=== PATIENT | female | born 1965 | race Caucasian/White ===

== ENCOUNTER 2021-03-24 07:29 | Inpatient (IN) | payer BC, OTHER ==
[~2021-03-24] VITALS: Ht 157.5 cm; Wt 66.2 kg
[~2021-03-24 07:29] MED LIST: MECL-118 PO
--- NOTE | 2021-03-24 07:29 | NUR ---
PT BIB DAUGHTER C/O WORSENING SOB, +COVID 1 WEEK AGO. PT IS AAOX4, NOTED MILD RESPIRATORY DISTRESS, HOOKED TO O2 VIA NC AT 4 LPM AND SUPPLY CHAIN BUSINESS ANALYST, KEPT RESTED AND COMFORTABLE. WILL CONTINUE TO MONITOR.
--- NOTE | 2021-03-24 07:39 | NUR ---
SEEN AND EXAMINED BY .
[2021-03-24] MEDS ORDERED: ALBU8.5H8 IH (07:50)
--- NOTE | 2021-03-24 07:50 | NUR ---
IV LINE ESTABLISHED BLOOD DRAWN AND SENT TO LAB.
[2021-03-24] MEDS ORDERED: DEXAMETHASONE SOD PHOSPHATE 10 MG/ML VIAL ONE (07:53)
[2021-03-24] MEDS ORDERED: DEXAMETHASONE SOD PHOSPHATE 10 MG/ML VIAL IV ONE (08:00)
--- NOTE | 2021-03-24 08:10 | NUR ---
CARDIAC NURSE PRACTITIONER AT BEDSIDE FOR XRAY.
[2021-03-24 08:22] LABS: BASOPHILS % (AUTO) 0.4 % (0.0-2.0); HEMATOCRIT 36 % (33-45); HEMOGLOBIN 12.5 g/dL (11.5-14.8); LYMPHOCYTES # (AUTO) 0.5 K/uL (0.8-4.8); LYMPHOCYTES % (AUTO) 7.6 % (20.0-44.0); MEAN CORPUSCULAR HGB CONC 35 g/dl (31.0-36.0); MEAN CORPUSCULAR VOLUME 89 fL (82-100); MONOCYTES # (AUTO) 0.5 K/uL (0.1-1.30); MONOCYTES % (AUTO) 7.3 % (2.0-12.0); NEUTROPHILS # (AUTO) 5.4 K/uL (1.8-8.9); NEUTROPHILS % (AUTO) 84.7 % (43.0-81.0); PLATELET COUNT (AUTO) 220 K/uL (150-450); RED BLOOD CELL COUNT(AUTO) 4.05 MIL/uL (4.0-5.2); WHITE BLOOD COUNT (AUTO) 6.4 K/uL (4.3-11.0)
--- NOTE | 2021-03-24 08:24 | NUR ---
COVID SPECIMEN OBTAINED AND SENT TO LAB.
[2021-03-24 08:30] LABS: CALCIUM, SERUM 8.4 mg/dL (8.5-10.1); CARBON DIOXIDE 25 mmol/L (21-32); CHLORIDE 99 mmol/L (98-107); CREATININE 0.7 mg/dL (0.6-1.3); GLUCOSE 123 mg/dL (74-106); POTASSIUM 4.4 mmol/L (3.5-5.1); SODIUM SERUM 136 mmol/L (136-145); UREA NITROGEN, BLOOD 10 mg/dL (7-18)
[2021-03-24] MEDS ORDERED: IV D5/0.45 NACL 1,000 ML IV ONE ×3 (08:30)
[2021-03-24] MEDS ORDERED: IV D5 / 0.2% NACL 1,000 ML IV ONE (08:30)
[2021-03-24 08:49] LABS: ALANINE AMINOTRANSFERASE 84 U/L (12-78); ALKALINE PHOSPHATASE 55 U/L (46-116); ASPARTATE AMINOTRANSFERASE 63 U/L (15-37); BILIRUBIN,DIRECT 0.2 mg/dL (0.0-0.2); BILIRUBIN,TOTAL 0.5 mg/dL (0.2-1.0); TOTAL PROTEIN, SERUM 7.8 g/dL (6.4-8.2)
--- NOTE | 2021-03-24 08:53 | NUR ---
paged panel storage management consultant for admission and speaking to Dr. Avila.
--- NOTE | 2021-03-24 08:57 | NUR ---
NURSING SUP GAVE 105.
--- NOTE | 2021-03-24 09:13 | NUR ---
REPORT GIVEN TO IL[facility] FOR DANIEL.
[2021-03-24 09:48] VITALS: BP 128/73
--- NOTE | 2021-03-24 10:22 | NUR ---
CHEMIC MANGLER NOTES RECEIVED PT FROM ER, DIAGNOSED WITH COVID PNA, UNDER THE CARE OF DR. CHIANG, PT IS ALERT/ORIENTED X4 ON 4L O2 VIA N/C WITH SLIGHT SOB NOTED, O2 SATURATION 95%, PLACED ON TELE MONITOR, NSR 74. PT IS AMBULATORY, ASSISTED TO BEDSIDE COMMODE. LEFT AC HL 18 GAUGE FLUSHING WELL. SKIN INTACT, BED IN LOWEST LOCKED POSITION, SAFETY MEASURES OBSERVED, CALL LIGHT WITHIN REACH. PLAN OF CARE DISCUSSED WITH PT. BELONGINGS WILL BE CHECKED. ALL NEEDS ATTENDED. WILL CONTINUE TO MONITOR.
[2021-03-24 10:24] LABS: BILIRUBIN,URINE NEGATIVE (NEGATIVE); COLOR,URINE YELLOW (YELLOW); LEUKOCYTE ESTERASE ,URINE NEGATIVE (NEGATIVE); NITRITE, URINE NEGATIVE (NEGATIVE); PROTEIN,URINE NEGATIVE (NEGATIVE); UGLUCOSE >=1000 mg/dL (NEGATIVE); UROBILINOGEN,URINE 0.2 EU/dL (0.2)
[2021-03-24] MEDS ORDERED: ALBUTEROL SULFATE 8 GM HFA.AER.AD IH PRN (10:30)
[2021-03-24] MEDS ORDERED: ONDANSETRON HCL/PF 4 MG/2 ML VIAL IVP PRN (10:30)
[2021-03-24] MEDS ORDERED: MAGNESIUM HYDROXIDE 30 ML UDC PO PRN (10:30)
[2021-03-24] MEDS ORDERED: MAG HYDROX/AL HYDROX/SIMETH 30 ML UDC PO PRN (10:30)
[2021-03-24] MEDS ORDERED: HYDROCODONE/APAP 5/325MG TABLET PO PRN (10:30)
[2021-03-24] MEDS ORDERED: ACETAMINOPHEN 325 MG TABLET PO PRN (10:30)
[2021-03-24] MEDS: ENOXAPARIN SODIUM 40 MG/0.4 ML DISP.SYRIN SQ SCH (11:11)
[2021-03-24 11:18] LABS: BACTERIA,URINE Rare /HPF (None Seen); RBC,URINE 0-3 /HPF (0-2); SQUAMOUS EPITHELIAL CELL,UR Few /HPF (None Seen); WBC,URINE 0-2 /HPF (0-3)
[2021-03-24] MEDS: CEFTRIAXONE 1 G in IV D5W 50 ML IV SCH (11:28)
[2021-03-24] MEDS: SENNOSIDES/DOCUSATE SODIUM 1 TAB TABLET PO SCH (11:37)
[2021-03-24 11:44] LABS: C-REACTIVE PROTEIN 8.1 mg/dL (0.0-0.9)
--- NOTE | 2021-03-24 11:48 | NUR ---
CRACK OFF PERSON NOTES SPOKE WITH DR. CHIANG. PT COMPLAINING OF CONSTIPATION. ORDERED [place], ORDER CARRIED OUT. PT RECENTLY COMPLETED COURSE OF AZYTHROMICIN. DR. CHIANG SAID TO STILL CONTINUE IV ZITHROMAX, ASSISTED TO BEDSIDE COMMODE, ABLE TO URINATE WELL, KEPT CLEAN AND DRY. ASSISTED BACK TO BED, BED IN LOWEST LOCKED POSITION, CALL LIGHT WITHIN REACH, ALL NEEDS ATTENDED.
[2021-03-24 12:00] VITALS: BP 102/54
[2021-03-24] MEDS: AZITHROMYCIN 500 MG in IV D5W 250 ML IV SCH (12:09)
--- NOTE | 2021-03-24 15:31 | NUR ---
POLISHING PAD MOUNTER NOTE ROUNDS MADE RESTING COMFORTABLY IN BED , CALL LIGHT WITHIN REACH
[2021-03-24 16:00] VITALS: BP 107/63
[2021-03-24] MEDS: REMDESIVIR (CHARGED) 200 MG, *LOADING DOSE 1 EA in IV NS 0.9% 210 ML IV ONE ×2 (17:03→17:36)
--- NOTE | 2021-03-24 18:29 | NUR ---
DYE HOUSE WHEEL OPERATOR NOTES PT IN BED EATING DINNER AND RESTING. NO SIGNS OF SOB, CONTINUED ON 4L NC OXYGEN SATURATION 95%. ALL NEEDS ATTENDED, CALL LIGHT WITHIN REACH, BED IN LOWEST LOCKED POSITION. WILL CONTINUE TO MONITOR.
--- NOTE | 2021-03-24 19:30 | NUR ---
RN OPENING NOTES: RECEIVED PT A/OX4 IN BED SLEEPING COMFORTABLY. PATIENT IN NO S/SX OF ACUTE DISTRESS AT THIS TIME. NO SOB NOTED. PATIENT'S BREATHING IS EVEN AND UNLABORED. PATIENT IS ON 5L OF OXYGEN VIA NC; TOLERATING WELL. PATIENT ON TELE MONITORING READING SINUS RHYTHM HR IS @75 BPM AT THE TIME OF RECEIVED. PATIENT ON REGULAR DIET; TOLERATES WELL. NOTED IV SITE ON L AC#18 ; PATENT, INTACT AND FLUSHING WELL; NO S/S OF INFECTION OR INFILTRATION. SAFETY MEASURES HAVE BEEN PROVIDED AND IMPLEMENTED. PATIENT BED ALARM IS ON. HEAD OF BED ELEVATED. BED IS LOCKED, IN LOWEST POSITION AND SIDE RAILS UP. CALL LIGHT WITHIN REACH OF THE PATIENT. APPLICABLE ISOLATION PRECAUTIONS IN PLACE. WILL CONTINUE TO MONITOR AND REASSESS FOR ANY CHANGES AND WILL CARRY OUT ANY ONGOING AND ACTIVE MD ORDER.
[2021-03-24 20:00] VITALS: BP 105/62
[2021-03-25] VITALS: BP 99/57
--- NOTE | 2021-03-25 | NUR ---
RN NOTES PATIENT REMAINED TO BE IN NO SIGNS OF ACUTE RESPIRATORY DISTRESS , VITAL SIGNS WNL AT THIS TIME. REPRESENTATIVE GOVERNMENT RELATIONS MADE AWARE. WILL CONTINUE TO MONITOR AND REASSESS FOR ANY CHANGES THROUGHOUT THE SHIFT.
[2021-03-25 04:00] VITALS: BP 105/57
--- NOTE | 2021-03-25 04:00 | NUR ---
RN NOTES NO NOTED CHANGES IN PATIENT CONDITION AT THIS TIME; PATIENT VITALS STABLE, NO SIGNS OF ACUTE RESPIRATORY DISTRESS. AM PATIENT CARE RENDERED. STONEWORKER MADE AWARE. WILL CONTINUE TO MONITOR AND REASSESS FOR ANY CHANGES THROUGHOUT THE SHIFT.
[2021-03-25 06:05] LABS: BASOPHILS % (AUTO) 0.2 % (0.0-2.0); HEMATOCRIT 33 % (33-45); HEMOGLOBIN 11.5 g/dL (11.5-14.8); LYMPHOCYTES # (AUTO) 0.7 K/uL (0.8-4.8); MEAN CORPUSCULAR HGB CONC 34 g/dl (31.0-36.0); MEAN CORPUSCULAR VOLUME 89 fL (82-100); MONOCYTES # (AUTO) 0.7 K/uL (0.1-1.30); MONOCYTES % (AUTO) 10.3 % (2.0-12.0); NEUTROPHILS # (AUTO) 5.5 K/uL (1.8-8.9); NEUTROPHILS % (AUTO) 79.5 % (43.0-81.0); PLATELET COUNT (AUTO) 249 K/uL (150-450); RED BLOOD CELL COUNT(AUTO) 3.74 MIL/uL (4.0-5.2); WHITE BLOOD COUNT (AUTO) 6.9 K/uL (4.3-11.0)
[2021-03-25 06:44] LABS: ALBUMIN 2.6 g/dL (3.4-5.0); BILIRUBIN,DIRECT 0.1 mg/dL (0.0-0.2); BILIRUBIN,TOTAL 0.4 mg/dL (0.2-1.0); CALCIUM, SERUM 8.2 mg/dL (8.5-10.1); CREATININE 0.7 mg/dL (0.6-1.3); MAGNESIUM 2.3 mg/dL (1.8-2.4); PHOSPHORUS 3.7 mg/dL (2.5-4.9); POTASSIUM 4.2 mmol/L (3.5-5.1)
[2021-03-25 06:52] LABS: THYROID STIMULATING HORMONE 0.31 uIU/mL (0.358-3.74)
--- NOTE | 2021-03-25 06:55 | NUR ---
RN CLOSING NOTE: PATIENT REMAINS IN ROOM IN NO SIGNS OF RESPIRATORY DISTRESS, PATIENT STILL ON 5L OF 02 VIA NC; TOLERATING WELL SATURATING @ >95% SP02. SAFETY MEASURES IMPLEMENTED, BED IN LOWEST POSITION, LOCKED, SIDE RAILS UP, CALL LIGHT WITHIN REACH. ALL NEEDS AND ORDERS ADDRESSED DURING THE SHIFT. IV ACCESS MAINTAINED INTACT, SECURED AND FLUSHING WELL. PATIENT KEPT CLEAN AND COMFORTABLE WITHIN THE SHIFT. PATIENT ENDORSED TO INCOMING SHIFT RN WITH STABLE VITAL SIGN AND FOR CONTINUITY OF CARE.
[2021-03-25 08:00] VITALS: BP 128/73
[2021-03-25] MEDS: SENNOSIDES/DOCUSATE SODIUM 1 TAB TABLET PO SCH ×2 (08:43→08:57)
[2021-03-25] MEDS: PANTOPRAZOLE 40 MG TABLET.DR PO SCH (08:44)
[2021-03-25] MEDS: ENOXAPARIN SODIUM 40 MG/0.4 ML DISP.SYRIN SQ SCH (08:45)
[2021-03-25] MEDS: DEXAMETHASONE SOD PHOSPHATE 10 MG/ML VIAL IV SCH (08:46)
[2021-03-25] MEDS: CEFTRIAXONE 1 G in IV D5W 50 ML IV SCH (10:50)
[2021-03-25 12:15] VITALS: BP 90/56
[2021-03-25] MEDS: AZITHROMYCIN 500 MG in IV D5W 250 ML IV SCH (12:15)
[2021-03-25 16:00] VITALS: BP 90/56
[2021-03-25 17:04] LABS: C-REACTIVE PROTEIN 3.5 mg/dL (0.0-0.9)
[2021-03-25] MEDS: REMDESIVIR (CHARGED) 100 MG in IV NS 0.9% 100 ML IV SCH (18:31)
--- NOTE | 2021-03-25 19:30 | NUR ---
RN OPENING NOTES: RECEIVED PT A/OX4 IN BED SLEEPING COMFORTABLY. PATIENT IN NO S/SX OF ACUTE DISTRESS AT THIS TIME. NO SOB NOTED. PATIENT'S BREATHING IS EVEN AND UNLABORED. PATIENT IS ON 5L OF OXYGEN VIA NC; TOLERATING WELL. PATIENT ON TELE MONITORING READING SINUS RHYTHM HR IS @60s AT THE TIME OF RECEIVED. PATIENT ON REGULAR DIET; TOLERATES WELL. NOTED IV SITE ON R UA MIDLINE#18; PATENT, INTACT AND FLUSHING WELL; NO S/S OF INFECTION OR INFILTRATION. SAFETY MEASURES HAVE BEEN PROVIDED AND IMPLEMENTED. PATIENT BED ALARM IS ON. HEAD OF BED ELEVATED. BED IS LOCKED, IN LOWEST POSITION AND SIDE RAILS UP. CALL LIGHT WITHIN REACH OF THE PATIENT. APPLICABLE ISOLATION PRECAUTIONS IN PLACE. WILL CONTINUE TO MONITOR AND REASSESS FOR ANY CHANGES AND WILL CARRY OUT ANY ONGOING AND ACTIVE MD ORDER.
--- NOTE | 2021-03-25 19:34 | NUR ---
STANDARDS ANALYST CLOSING NOTE PATIENT CURRENTLY LYING IN BED, RESTING. EASY TO AROUSE. A/O X4. ON 5L OF O2 VIA NC; TOLERATING WELL SATURATING @ 92 -95% SP02. IV ACCESS TO LEFT UPPER ARM - MIDLINE - INTACT AND PATENT, FLUSHES WELL. PATIENT KEPT CLEAN AND DRY THROUGHOUT SHIFT. SAFETY MEASURES IN PLACE. CALL LIGHT WITHIN REACH. WILL ENDORSE TO RADIO INTERFERENCE SUPERVISOR NURSE FOR DANIEL.
[2021-03-25 20:00] VITALS: BP 106/70
[2021-03-26] VITALS: BP 103/64
--- NOTE | 2021-03-26 | NUR ---
RN NOTES PATIENT REMAINED TO BE IN NO SIGNS OF ACUTE RESPIRATORY DISTRESS , VITAL SIGNS WNL AT THIS TIME. WILL CONTINUE TO MONITOR AND REASSESS FOR ANY CHANGES THROUGHOUT THE SHIFT.
[2021-03-26 04:00] VITALS: BP 109/67
--- NOTE | 2021-03-26 04:00 | NUR ---
RN NOTES NO NOTED CHANGES IN PATIENT CONDITION AT THIS TIME; PATIENT VITALS STABLE, NO SIGNS OF ACUTE RESPIRATORY DISTRESS. AM PATIENT CARE RENDERED. WILL CONTINUE TO MONITOR AND REASSESS FOR ANY CHANGES THROUGHOUT THE SHIFT.
--- NOTE | 2021-03-26 05:26 | NUR ---
RN NOTES PATIENT REFUSED AM BLOOD WORKS/BLOOD DRAW. EXPLAINED RISKS AND BENEFITS BUT PT STILL REFUSED. RN ACKNOWLEDGED.
--- NOTE | 2021-03-26 06:50 | NUR ---
RN CLOSING NOTE: PATIENT REMAINS IN ROOM IN NO SIGNS OF RESPIRATORY DISTRESS, PATIENT STILL ON 4L OF 02 VIA NC; TOLERATING WELL SATURATING @ >95% SP02. SAFETY MEASURES IMPLEMENTED, BED IN LOWEST POSITION, LOCKED, SIDE RAILS UP, CALL LIGHT WITHIN REACH. ALL NEEDS AND ORDERS ADDRESSED DURING THE SHIFT. IV ACCESS MAINTAINED INTACT, SECURED AND FLUSHING WELL. PATIENT KEPT CLEAN AND COMFORTABLE WITHIN THE SHIFT. PATIENT ENDORSED TO INCOMING SHIFT RN WITH STABLE VITAL SIGN AND FOR CONTINUITY OF CARE.
--- NOTE | 2021-03-26 07:50 | NUR ---
DRYING CAN WORKER OPENING NOTES RECEIVED PATIENT IN BED, AWAKE, A/O X4. ON OXYGEN THERAPY AT 4 LPM VIA NASAL CANULA SAT @92-93%. NO COMPLAINS OF PAIN. TELE MONITOR WITH A CURRENT READING OF SR 75. [place] MIDLINE INTACT. SAFETY PRECAUTIONS IN PLACE; BED IN LOW POSITION AND LOCKED, RAILS UP X2, CALL LIGHT WITHIN REACH. WILL CONTINUE TO MONITOR PATIENT.
[2021-03-26] MEDS: PANTOPRAZOLE 40 MG TABLET.DR PO SCH (08:30)
[2021-03-26] MEDS: SENNOSIDES/DOCUSATE SODIUM 1 TAB TABLET PO SCH (08:30)
[2021-03-26] MEDS: ENOXAPARIN SODIUM 40 MG/0.4 ML DISP.SYRIN SQ SCH (08:31)
[2021-03-26] MEDS: DEXAMETHASONE SOD PHOSPHATE 10 MG/ML VIAL IV SCH (08:32)
[2021-03-26 09:58] VITALS: BP 95/58
[2021-03-26] MEDS: CEFTRIAXONE 1 G in IV D5W 50 ML IV SCH (10:04)
[2021-03-26] MEDS: AZITHROMYCIN 500 MG in IV D5W 250 ML IV SCH (11:08)
[2021-03-26 12:09] VITALS: BP 104/62
[2021-03-26 16:04] VITALS: BP 103/64
--- NOTE | 2021-03-26 16:28 | NUR ---
UTILITY TELLER NOTES PATIENT REFUSED HER LABS IN THE MORNING. PHARMACY CALLED ASKING FOR TODAY'S LABS IN ORDER TO ADMINISTER REMDESIVIR. NEW DRAW ORDERED. PATIENT REFUSES AGAIN STATING SHE HAS TO TALK TO HER DAUGHTER BEFORE. DAUGHTER CALLED ASKING WHY SHE NEEDS HER LABS AGAIN. EXPLAINED THAT PER PHARMACY POLICY, IN ORDER TO ADMINISTER REMDESIVIR, DAILY LABS ARE REQUIRED. YA SAID SHE WILL CALL PHARMACY.
--- NOTE | 2021-03-26 17:59 | NUR ---
NATURAL FABRICATOR NOTES ACCORDING TO THE PHARMACY, DR MARQUIS WANTS TO SEE DAILY LABS BEFORE GETTING NEW BAG OF REMDESIVIR. DAUGHTER MADE AWARE. PATIENT AND DAUGHTER AGREED TO BMP ONLY. LAB CALLED.
--- NOTE | 2021-03-26 18:53 | NUR ---
QUALITY LAB TECHNICIAN CLOSING NOTES PATIENT REMAINS IN BED, AWAKE, A/O X4. ON OXYGEN THERAPY AT 4 LPM VIA NASAL CANULA SAT @97%. NO COMPLAINS OF PAIN. TELE MONITOR WITH A CURRENT READING OF SR 70S. [place] MIDLINE INTACT. ALL NEEDS ATTENDED DURING THE DAY. SAFETY PRECAUTIONS IN PLACE; BED IN LOW POSITION AND LOCKED, RAILS UP X2, CALL LIGHT WITHIN REACH. WILL ENDORSE TO BARIATRIC COORDINATOR NURSE.
[2021-03-26 19:06] LABS: CALCIUM, SERUM 8.4 mg/dL (8.5-10.1); CREATININE 0.6 mg/dL (0.6-1.3); POTASSIUM 4.1 mmol/L (3.5-5.1)
[2021-03-26 19:45] LABS: ALBUMIN 2.8 g/dL (3.4-5.0); BILIRUBIN,TOTAL 0.3 mg/dL (0.2-1.0); MAGNESIUM 2.2 mg/dL (1.8-2.4); PHOSPHORUS 4.5 mg/dL (2.5-4.9); TOTAL PROTEIN, SERUM 7.1 g/dL (6.4-8.2)
--- NOTE | 2021-03-26 20:00 | NUR ---
RECEIVED PATIENT IN BED, ALERT/ORIENTED X4, 4LPM VIA NC, DYSPNEA, AFEBRILE, INTERMITTENT DRY COUGH ON EXERTION, NO COMPLAIN OF PAIN, AGREED FOR BLOOD DRAW FOR BMP AND CBC TO ADMINISTER REMDESIVIR. ASSISTED TO BSC, [place] MIDLINE PATENT, FALL PRECAUTION, WILL CONTINUE TO MONITOR.
[2021-03-26] MEDS: REMDESIVIR (CHARGED) 100 MG in IV NS 0.9% 100 ML IV SCH (20:15)
[2021-03-26 20:45] VITALS: BP 102/63
--- NOTE | 2021-03-26 21:35 | NUR ---
213 PATIENT AND DAUGHTER REFUSED SCHEDULED BLOOD WORK FOR D-DIMER, CBC, AND PTT. DR. YOON MADE AWARE WITH ORDER TO DRAW IN AM. ORDER NOTED. PATIENT MADE AWARE.
[2021-03-27 00:27] VITALS: BP 105/61
[2021-03-27 04:00] VITALS: BP 106/65
--- NOTE | 2021-03-27 06:17 | NUR ---
ALERT/ORIENTED X4, REMAINED ON 4LPM VIA NC, DYSPNEA, ASSISTED TO BSC, GENERALIZED WEAKNESS, AFEBRILE, VS STABLE, IF PATIENT CAN TOLERATE 3LPM VIA NC, PATIENT CAN BE DISCHARGED TO HOME.
[2021-03-27 06:25] LABS: ALBUMIN 2.8 g/dL (3.4-5.0); BILIRUBIN,DIRECT 0.1 mg/dL (0.0-0.2); BILIRUBIN,TOTAL 0.4 mg/dL (0.2-1.0); CALCIUM, SERUM 8.2 mg/dL (8.5-10.1); CREATININE 0.7 mg/dL (0.6-1.3); POTASSIUM 4.1 mmol/L (3.5-5.1); TOTAL PROTEIN, SERUM 6.8 g/dL (6.4-8.2)
[2021-03-27 06:28] LABS: BASOPHILS % (AUTO) 0.4 % (0.0-2.0); EOSINOPHILS % (AUTO) 0.1 % (0.0-6.0); HEMATOCRIT 34 % (33-45); HEMOGLOBIN 11.8 g/dL (11.5-14.8); LYMPHOCYTES % (AUTO) 17.1 % (20.0-44.0); MEAN CORPUSCULAR HGB CONC 34 g/dl (31.0-36.0); MEAN CORPUSCULAR VOLUME 90 fL (82-100); MONOCYTES # (AUTO) 0.6 K/uL (0.1-1.30); MONOCYTES % (AUTO) 9.9 % (2.0-12.0); NEUTROPHILS # (AUTO) 4.4 K/uL (1.8-8.9); NEUTROPHILS % (AUTO) 72.5 % (43.0-81.0); PLATELET COUNT (AUTO) 321 K/uL (150-450); RED BLOOD CELL COUNT(AUTO) 3.82 MIL/uL (4.0-5.2)
[2021-03-27 07:23] LABS: D-DIMER 0.57 mg/L(FEU (0.17-0.50)
--- NOTE | 2021-03-27 07:53 | NUR ---
TELE/RN OPENING NOTES RECEIVED PATIENT IN BED, AWAKE, A/O X4. ON OXYGEN THERAPY AT 4 LPM VIA NASAL CANULA SAT @97%. NO COMPLAINS OF PAIN. TELE MONITOR WITH A CURRENT READING OF SR 70S. [place] MIDLINE INTACT. ALL NEEDS ATTENDED DURING THE DAY. SAFETY PRECAUTIONS IN PLACE; BED IN LOW POSITION AND LOCKED, RAILS UP X2, CALL LIGHT WITHIN REACH. WILL CONTINUE TO MONITOR PATIENT.
[2021-03-27] MEDS: PANTOPRAZOLE 40 MG TABLET.DR PO SCH (08:07)
[2021-03-27] MEDS: SENNOSIDES/DOCUSATE SODIUM 1 TAB TABLET PO SCH (08:07)
[2021-03-27] MEDS: DEXAMETHASONE SOD PHOSPHATE 10 MG/ML VIAL IV SCH (08:09)
[2021-03-27] MEDS: ENOXAPARIN SODIUM 40 MG/0.4 ML DISP.SYRIN SQ SCH (08:13)
[2021-03-27 08:37] VITALS: BP 101/63
[2021-03-27] MEDS: CEFTRIAXONE 1 G in IV D5W 50 ML IV SCH (11:52)
[2021-03-27 12:28] VITALS: BP 94/56
[2021-03-27] MEDS: AZITHROMYCIN 500 MG in IV D5W 250 ML IV SCH (12:43)
[2021-03-27 16:14] VITALS: BP 101/57
[2021-03-27] MEDS: REMDESIVIR (CHARGED) 100 MG in IV NS 0.9% 100 ML IV SCH (17:43)
--- NOTE | 2021-03-27 19:14 | NUR ---
TELE/RN CLOSING NOTES PATIENT IN BED, AWAKE, A/O X4. ON OXYGEN THERAPY AT 4 LPM VIA NASAL CANULA SAT @97%. NO COMPLAINS OF PAIN. TELE MONITOR WITH A CURRENT READING OF SR 70S. [place] MIDLINE INTACT. ALL NEEDS ATTENDED DURING THE DAY. SAFETY PRECAUTIONS IN PLACE; BED IN LOW POSITION AND LOCKED, RAILS UP X2, CALL LIGHT WITHIN REACH. WILL ENDORSE TO THE NEXT SHIFT FOR DANIEL.
--- NOTE | 2021-03-27 19:35 | NUR ---
RN OPENING NOTES: RECEIVED PT A/OX4 IN BED SLEEPING COMFORTABLY. PATIENT IN NO S/SX OF ACUTE DISTRESS AT THIS TIME. NO SOB NOTED. PATIENT'S BREATHING IS EVEN AND UNLABORED. PATIENT IS ON 4L OF OXYGEN VIA NC; TOLERATING WELL. PATIENT ON TELE MONITORING READING SINUS RHYTHM HR IS @80s AT THE TIME OF RECEIVED. PATIENT ON REGULAR DIET; TOLERATES WELL. NOTED IV SITE ON R UA MIDLINE#18; PATENT, INTACT AND FLUSHING WELL; NO S/S OF INFECTION OR INFILTRATION. SAFETY MEASURES HAVE BEEN PROVIDED AND IMPLEMENTED. PATIENT BED ALARM IS ON. HEAD OF BED ELEVATED. BED IS LOCKED, IN LOWEST POSITION AND SIDE RAILS UP. CALL LIGHT WITHIN REACH OF THE PATIENT. APPLICABLE ISOLATION PRECAUTIONS IN PLACE. WILL CONTINUE TO MONITOR AND REASSESS FOR ANY CHANGES AND WILL CARRY OUT ANY ONGOING AND ACTIVE MD ORDER.
[2021-03-27 20:00] VITALS: BP 117/72
[2021-03-28] VITALS: BP 110/60
--- NOTE | 2021-03-28 | NUR ---
RN NOTES PATIENT REMAINED TO BE IN NO SIGNS OF ACUTE RESPIRATORY DISTRESS , VITAL SIGNS WNL AT THIS TIME.WILL CONTINUE TO MONITOR AND REASSESS FOR ANY CHANGES THROUGHOUT THE SHIFT.
[2021-03-28 04:00] VITALS: BP 98/62
--- NOTE | 2021-03-28 04:00 | NUR ---
RN NOTES NO NOTED CHANGES IN PATIENT CONDITION AT THIS TIME; PATIENT VITALS STABLE, NO SIGNS OF ACUTE RESPIRATORY DISTRESS. AM PATIENT CARE RENDERED.WILL CONTINUE TO MONITOR AND REASSESS FOR ANY CHANGES THROUGHOUT THE SHIFT.
--- NOTE | 2021-03-28 05:30 | NUR ---
RN NOTES ADJUSTED AND TITRATED DOWN O2 VIA NC FROM 4L TO 3L;TOLERATES AT THIS TIME. WILL REASSESS AFTER 30 MINUTES AND CHECK FOR 02 SAT.
--- NOTE | 2021-03-28 05:51 | NUR ---
RN NOTES PATIENT REFUSED AM BLOOD WORKS/BLOOD DRAW. EXPLAINED RISKS AND BENEFITS BUT PT STILL REFUSED. RN ACKNOWLEDGED. APPLIANCE TESTER WELL AWARE.
--- NOTE | 2021-03-28 06:08 | NUR ---
@0605 PT IS AT 97% 02 SAT @ 3L OF 02 VIA NC. DIRECTOR PHONE WELL AWARE. WILL CONTINUE TO ASSESS AND MONITOR.
--- NOTE | 2021-03-28 06:50 | NUR ---
RN CLOSING NOTE: PATIENT REMAINS IN ROOM IN NO SIGNS OF RESPIRATORY DISTRESS, PATIENT STILL ON 3L OF 02 VIA NC; TOLERATING WELL SATURATING @ >95% SP02. SAFETY MEASURES IMPLEMENTED, BED IN LOWEST POSITION, LOCKED, SIDE RAILS UP, CALL LIGHT WITHIN REACH. ALL NEEDS AND ORDERS ADDRESSED DURING THE SHIFT. IV ACCESS MAINTAINED INTACT, SECURED AND FLUSHING WELL. PATIENT KEPT CLEAN AND COMFORTABLE WITHIN THE SHIFT. PATIENT ENDORSED TO INCOMING SHIFT RN WITH STABLE VITAL SIGN AND FOR CONTINUITY OF CARE.
--- NOTE | 2021-03-28 07:20 | NUR ---
RN NOTE PATIENT OBSERVED ON BED, ON O2 VIA NC @3LPM, BREATHING EVEN AND UNLABORED TOLERATING WELL, ALERT AND ORIENTED X4, ABLE TO VEBALIZE NEEDS, CONTINENT ON B AND B, BEDSIDE COMMODE AT BED SIDE, IV SITE LEFT AC PATENT INFUSING WELL, ON REMDESIVIR NO ASE NOTED, CONTINUE DVT PPX NO BLEEDING NOTED, ON TELE MONITOR SR OF 71, SAFETY MEASURES OBSERVED, CALL LIGHT WITHIN REACH BED WHEELS LOCK, WILL CONTINUE TO MONITOR.
[2021-03-28 08:00] VITALS: BP 98/54
[2021-03-28] MEDS: PANTOPRAZOLE 40 MG TABLET.DR PO SCH (08:03)
[2021-03-28] MEDS: DEXAMETHASONE SOD PHOSPHATE 10 MG/ML VIAL IV SCH (09:07)
[2021-03-28] MEDS: SENNOSIDES/DOCUSATE SODIUM 1 TAB TABLET PO SCH (09:13)
[2021-03-28] MEDS: ENOXAPARIN SODIUM 40 MG/0.4 ML DISP.SYRIN SQ SCH (09:13)
[2021-03-28 10:37] LABS: ABG BASE EXCESS 1.9 mmol/L; ABG OXYGEN SATURATION 92.4 % (92.0-98.5); ABG PCO2 36.7 mmHg (35.0-45.0); ABG PH 7.461 (7.350-7.450); ABG PO2 61.3 mmHg (75.0-100.0); AaDO2 131.1 mmHg; COHb 0.3 % (0.5-1.5); MetHb 0.1 % (0.0-1.5); SITE, ABG Right Radial; VENT MODE, BG nasal cannula
[2021-03-28 11:54] LABS: ALBUMIN 2.8 g/dL (3.4-5.0); BILIRUBIN,DIRECT 0.1 mg/dL (0.0-0.2); BILIRUBIN,TOTAL 0.5 mg/dL (0.2-1.0); CALCIUM, SERUM 8.1 mg/dL (8.5-10.1); CREATININE 0.7 mg/dL (0.6-1.3); POTASSIUM 4.4 mmol/L (3.5-5.1); TOTAL PROTEIN, SERUM 6.9 g/dL (6.4-8.2)
[2021-03-28 12:00] VITALS: BP 98/54
[2021-03-28] MEDS: CEFTRIAXONE 1 G in IV D5W 50 ML IV SCH (12:03)
[2021-03-28 12:07] LABS: BASOPHILS % (AUTO) 0.1 % (0.0-2.0); EOSINOPHILS % (AUTO) 0.1 % (0.0-6.0); HEMATOCRIT 34 % (33-45); HEMOGLOBIN 11.5 g/dL (11.5-14.8); LYMPHOCYTES # (AUTO) 1.1 K/uL (0.8-4.8); LYMPHOCYTES % (AUTO) 8.5 % (20.0-44.0); MEAN CORPUSCULAR HGB CONC 34 g/dl (31.0-36.0); MEAN CORPUSCULAR VOLUME 90 fL (82-100); MONOCYTES # (AUTO) 0.8 K/uL (0.1-1.30); MONOCYTES % (AUTO) 5.9 % (2.0-12.0); NEUTROPHILS # (AUTO) 11.1 K/uL (1.8-8.9); NEUTROPHILS % (AUTO) 85.4 % (43.0-81.0); PLATELET COUNT (AUTO) 362 K/uL (150-450)
[2021-03-28] MEDS: AZITHROMYCIN 500 MG in IV D5W 250 ML IV SCH (13:01)
[2021-03-28 16:00] VITALS: BP 98/61
[2021-03-28] MEDS: REMDESIVIR (CHARGED) 100 MG in IV NS 0.9% 100 ML IV SCH (17:06)
--- NOTE | 2021-03-28 19:08 | NUR ---
RN NOTE PATIENT OBSERVED ON BED, ON O2 VIA NC @2LPM, BREATHING EVEN AND UNLABORED TOLERATING WELL, ALERT AND ORIENTED X4, ABLE TO VERBALIZE NEEDS, CONTINENT ON B AND B, BEDSIDE COMMODE AT BED SIDE, IV SITE LEFT AC PATENT INFUSING WELL, 4TH DOSE OF REMDESIVIR GIVEN NO ASE NOTED, CONTINUE DVT PPX NO BLEEDING NOTED, ON TELE MONITOR SB OF 59, SAFETY MEASURES OBSERVED, CALL LIGHT WITHIN REACH BED WHEELS LOCK, WILL CONTINUE TO MONITOR. WILL ENDORSE TO NOC SHIFT
[2021-03-28 20:00] VITALS: BP 101/62
--- NOTE | 2021-03-28 20:00 | NUR ---
INFORMATION TECHNOLOGY ARCHITECT NOTE PT IN BED AWAKE. A/O X 4, NO SOB, NO DISTRESS OR DISCOMFORT NOTED. DENIES PAIN. [place] WITH MIDLINE INTACT AND PATENT. ON 2L O2 VIA N/C O2 SAT 96%. ON TELE MONITOR SB HR 55. ALL NEEDS ATTENDED. CALL LIGHT WITHIN REACH. REMAIN IN ISOLATION FOR COVID POSITIVE. ISOLATION PRECAUTIONS TAKEN. SIDE RAILS UP X 2 AND CALL LIGHT WITHIN REACH. VSS. CONTINUE TO MONITOR HER.
[2021-03-29] VITALS: BP 98/54
[2021-03-29 04:00] VITALS: BP 100/57
--- NOTE | 2021-03-29 06:48 | NUR ---
DIGITAL FORENSIC ANALYST NOTE PT IN BED ASLEEP, AROUSABLE. NO DISTRESS OR DISCOMFORT NOTED. DENIES PAIN. ON TELE MONITOR SB 50'S. SIDE RAILS UP X 2 AND CALL LIGHT WITHIN REACH. WILL ENDORSE TO DAY SHIFT NURSE FOR CONTINUE TO CARE.
--- NOTE | 2021-03-29 07:30 | NUR ---
RN NOTE PATIENT OBSERVED ON BED, ON O2 VIA NC @2LPM, BREATHING EVEN AND UNLABORED TOLERATING WELL, ALERT AND ORIENTED X4, ABLE TO VEBALIZE NEEDS, CONTINENT ON B AND B, BEDSIDE COMMODE AT BED SIDE, IV SITE LEFT AC PATENT INFUSING WELL, S/P REMDESIVIR NO ASE NOTED, CONTINUE DVT PPX NO BLEEDING NOTED, ON TELE MONITOR SR OF 71, SAFETY MEASURES OBSERVED, CALL LIGHT WITHIN REACH BED WHEELS LOCK, WILL CONTINUE TO MONITOR.
[2021-03-29 08:00] VITALS: BP 100/61
[2021-03-29] MEDS: PANTOPRAZOLE 40 MG TABLET.DR PO SCH (08:15)
[2021-03-29] MEDS: SENNOSIDES/DOCUSATE SODIUM 1 TAB TABLET PO SCH (08:48)
[2021-03-29] MEDS: ENOXAPARIN SODIUM 40 MG/0.4 ML DISP.SYRIN SQ SCH (08:49)
[2021-03-29] MEDS: DEXAMETHASONE SOD PHOSPHATE 10 MG/ML VIAL IV SCH (08:58)
[2021-03-29 12:00] VITALS: BP 101/62
[2021-03-29 16:00] VITALS: BP 121/77
--- NOTE | 2021-03-29 16:43 | NUR ---
RN NOTE PATIENT DISCHARGE WITH O2 VIA NC @2LPN O2 SAT OF 94%, BREATHING EVEN AND UNLABORED, NOT IN DISTRESS, HEALTH TEACHING DONE, DISCHARGE INSTRUCTIONS GIVEN.
== END 2021-03-29 16:30 | disposition home or self-care (01) | DRG 177 ==
LOC: ER 07:32 → TELE1 09:05
PROC: XW033E5 Introduction of Remdesivir Anti-infective into Peripheral Vein, Percutaneous Approach, New Technology Group 5 (ICD-10-PCS; principal; 2021-03-24)
PROC: 05H533Z Insertion of Infusion Device into Right Subclavian Vein, Percutaneous Approach (ICD-10-PCS; 2021-03-25)
PROC: B546ZZA Ultrasonography of Right Subclavian Vein, Guidance (ICD-10-PCS; 2021-03-25)
DX: U07.1 COVID-19 (principal); J12.82 Pneumonia due to coronavirus disease 2019; J96.01 Acute respiratory failure with hypoxia; J45.909 Unspecified asthma, uncomplicated; R74.01 Elevation of levels of liver transaminase levels
CPT/HCPCS: 36410; 36415; 36600; 71045-TC; 71046; 80048-TC; 80053-TC; 80061-TC; 80076-TC; 81001; 82550-TC; 82728-TC; 82803-TC; 83605-TC; 83615-TC; 83735-TC; 84100-TC; 84443-TC; 84484-TC; 85025-TC; 85378-TC; 85610-TC; 85730-TC; 86140-TC; 87040-TC; 87081-TC; 87086-TC; 93307-TC; A4216; G0378; J0456; J0696; J1100; J1650; J3490; J7030; J7040; J7050; J7060; U0003

== ENCOUNTER 2021-04-20 13:40 | Outpatient (CLI) | payer OTHER ==
[~2021-04-20 13:40] MED LIST changes: +ALBU8.5H8 IH; -MECL-118 PO
[2021-04-20 14:26] LABS: BASOPHILS # (AUTO) 0.1 K/uL (0.0-0.2); BASOPHILS % (AUTO) 0.9 % (0.0-2.0); EOSINOPHILS % (AUTO) 2.6 % (0.0-6.0); HEMATOCRIT 37 % (33-45); HEMOGLOBIN 12.3 g/dL (11.5-14.8); LYMPHOCYTES # (AUTO) 2.1 K/uL (0.8-4.8); LYMPHOCYTES % (AUTO) 39.3 % (20.0-44.0); MEAN CORPUSCULAR HGB CONC 33 g/dl (31.0-36.0); MEAN CORPUSCULAR VOLUME 91 fL (82-100); MONOCYTES # (AUTO) 0.5 K/uL (0.1-1.30); MONOCYTES % (AUTO) 8.9 % (2.0-12.0); NEUTROPHILS # (AUTO) 2.6 K/uL (1.8-8.9); NEUTROPHILS % (AUTO) 48.3 % (43.0-81.0); PLATELET COUNT (AUTO) 333 K/uL (150-450); RED BLOOD CELL COUNT(AUTO) 4.09 MIL/uL (4.0-5.2); WHITE BLOOD COUNT (AUTO) 5.4 K/uL (4.3-11.0)
[2021-04-20 15:50] LABS: THYROID STIMULATING HORMONE 1.689 uIU/mL (0.358-3.74)
[2021-04-20 15:51] LABS: ALBUMIN 3.7 g/dL (3.4-5.0); BILIRUBIN,TOTAL 0.3 mg/dL (0.2-1.0); CALCIUM, SERUM 8.3 mg/dL (8.5-10.1); CREATININE 0.6 mg/dL (0.6-1.3); POTASSIUM 3.7 mmol/L (3.5-5.1); TOTAL PROTEIN, SERUM 7.7 g/dL (6.4-8.2)
== END 2021-04-20 23:59 | disposition home or self-care (01) ==
LOC: LAB 13:40
DX: Z86.12 Personal history of poliomyelitis (principal)
CPT/HCPCS: 36415; 80053-TC; 80061-TC; 82140-TC; 84443-TC; 85025-TC